=== PATIENT | male | born 1955 | race Caucasian/White ===

== ENCOUNTER 2016-11-09 11:04 | Observation (INO) | payer BC ==
--- NOTE | ~2016-11-09 | HP ---
History And Physical [id number] [facility] [place]. [address] NAME: FREDDY HALEY : 57 STATUS : ADM Yang PAT#: [id number] AGE: 61 ADM/REG DATE : 11/09/16 MR#: [id number] REPORT SERV DATE: 11/10/16 DICTATED BY: MANJIT CHANDLER DATE: 11/10/16 REPORT STATUS : Draft TRANSCRIBED BY: MOD[employer]ia DATE: 11/10/16 DATE OF ADMISSION: 11/09/2016 LABORER RAGS: Hieu Longoria M.D. PSYCHIATRIST: Dr. Lenz and also seen by Dr. Chin at [facility]. PAIN MANAGEMENT: Dr. Hidalgo. HISTORY OF PRESENT ILLNESS: This is a 61-year-old, white male with a history of mild nonobstructive coronary artery disease on cath arteriogram 10/2015 with aortic stenosis, status post AVR 2015 and paroxysmal atrial fibrillation/atrial flutter 2015 for which he is on Eliquis and denies recurrence since last year. He does also have asthma, GERD, and anxiety and depression along with seasonal allergies. He reports that he has had allergic rhinitis symptoms x3 days with a hacking cough. He reports that for three days he has had constant left-sided chest pain with no alleviating or exacerbating factors. It is mildly tender to palpation and is perhaps worse with cough. He denies any palpitations. No syncope. No edema. He denies any fevers. He did have one episode of shortness of breath and wheezing along with the cough yesterday morning. He reports that he had run out of his albuterol and therefore did not take it. He has had no shortness of breath or wheezing since that one episode. He reports he is supposed to be taking Breo Ellipta but is not taking it except for as needed and cannot remember when he last took it. He had a headache in the emergency room and at times overnight for which staff had given him Dilaudid. This has resolved. They evaluated in the ER and he had a negative head CT. He reports that he is tired which is noted on last year's complaint as well. He reports muscles are sore all over. Again, he denies any fever or severe myalgias, however. He denied any chest pain at my time of exam although went back in the room afterwards as he complained of 6/10 chest pain. EKG was done and it was benign. He remained tender to palpation. Currently, he is still sore all over. He also tells me that he has been under tremendous amount of stress with his job and with getting engaged and that he is "drinking too much beer." However, on further discussion, he had 3 beers 2 days ago and a total of 10 in one week and no liquor. PAST MEDICAL HISTORY: 1. Severe with bicuspid valve, status post bovine AVR bioprosthesis with replacement of ascending aorta, 12/04/2015, Dr. Steven. 2. PAF and atrial flutter, status post Maze/left atrial appendage ligation, 12/04/2015, currently on novel oral anticoagulant and no antiarrhythmics. Not on beta blockers for unclear reasons. Possibly secondary to fatigue. Defer to Dr. Longoria. 3. Mild nonobstructive coronary artery disease per cath arteriogram, 11/20/2015, with Dr. Mcbride with noted only mild luminal irregularities. 4. Last echocardiogram, 01/17/2016, with normal LVEF 55-60% with moderate diastolic dysfunction. 5. Three-day detox, 08/2014, at [facility] for unclear reasons (per office visit note, Dr. Covington, on chart). 6. GERD. 7. Allergic rhinitis. History And Physical [address] [address] NAME: FREDDY HALEY : 57 STATUS : ADM Yang PAT#: [id number] AGE: 61 ADM/REG DATE : 11/09/16 MR#: [id number] REPORT SERV DATE: 11/10/16 DICTATED BY: MANJIT CHANDLER DATE: 11/10/16 REPORT STATUS : Draft TRANSCRIBED BY: ADRY DATE: 11/10/16 8. Asthma. 9. History of chest pain, noted hospitalization, 11/15/2015. 10.History of mildly abnormal troponin, 0.05-0.07 range during hospitalization last year. 11.Hypertension. 12.Hypertriglyceridemia. 13.Depression. 14.Anxiety. 15.Migraine headaches for which he is on Maxalt. 16.Fatigue. 17.Vitamin D deficiency. 18.Low testosterone. 19.Obstructive sleep apnea. PAST SURGICAL HISTORY: 1. Back surgeries in 2010 and 2011 in [place], [place]. 2. AVR bioprosthesis and ascending aorta replacement, 12/04/2015. 3. Cath arteriogram, 11/20/2015, description as per above. SOCIAL HISTORY: He is . He is newly engaged. He denies any smoking. He uses snuff and has done so for 15 years. He drinks beer, 10 beers past week, 3 beers 2 days ago. No liquor. No formal exercise program. 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 FAMILY HISTORY: Father with TIAs. REVIEW OF SYSTEMS: As above per HPI, all other systems reviewed and negative. ALLERGIES: CODEINE REACTION BREAKOUT. HOME MEDICATIONS: List reviewed and is as follows: 1. Albuterol 2 puffs inhaled as needed for shortness of breath. 2. Eliquis 5 mg p.o. twice per day. 3. Wellbutrin XL 200 mg p.o. daily. 4. Vitamin B12, 1000 mcg p.o. daily. 5. Diazepam 10 mg p.o. three times per day as needed for anxiety. 6. Losartan 50 mg p.o. daily. 7. Multivitamins with minerals 1 tablet p.o. daily. 8. Protonix 40 mg p.o. twice per day. 9. Maxalt 5 mg p.o. p.r.n. migraine headaches. 10.Ambien 10 mg p.o. daily at bedtime. 11.Breo Ellipta. The patient does not know the strength or frequency. He is only taking it as needed for shortness of breath and cannot remember the last time he has taken it. He does not know what dosage he is supposed to be taking. PHYSICAL EXAMINATION: VITAL SIGNS: Oxygen saturation 96% on room air, temperature 98, pulse 65, respiratory rate History And Physical [address] [address] NAME: FREDDY HALEY : 57 STATUS : ADM Yang PAT#: [id number] AGE: 61 ADM/REG DATE : 11/09/16 MR#: [id number] REPORT SERV DATE: 11/10/16 DICTATED BY: MANJIT CHANDLER DATE: 11/10/16 REPORT STATUS : Draft TRANSCRIBED BY: MODL DATE: 11/10/16 16, blood pressure 116/67. GENERAL: Well developed, well nourished. In no apparent distress. HEENT: Head normocephalic. No xanthelasma. Sclera clear, anicteric. Moist mucous membranes without pallor. No lymphadenopathy. No deficits noted. NECK: Trachea midline. Supple. No thyromegaly, JVD, or bruits. RESPIRATORY: Unlabored respirations. Breath sounds clear bilaterally to posterior auscultation. No wheezes, rhonchi or crackles. CARDIOVASCULAR: Regular rate and rhythm. No murmur, rub, or gallop appreciated. Left- sided chest wall is mildly tender to palpation. Well-healed midline sternotomy scar noted. ABDOMEN: Soft, nontender, and nondistended. Active bowel sounds auscultated x4 quadrants. No organomegaly and no masses. No aortic bruit. EXTREMITIES: DP/PT and radial pulses 2+ bilaterally. No clubbing, cyanosis, or edema. SKIN: Warm, dry, intact. No rash. Normal turgor. MUSCULOSKELETAL: Moves all extremities in bed without difficulty. NEURO/PSYCH: Alert and oriented x3 with no acute distress. Affect appropriate to current situation. LABORATORY DATA: BMP: Sodium 137, potassium 4.8, creatinine 0.97, glucose 98, calcium 8.5, magnesium 2.3. CBC: White blood cell count 5.5, hemoglobin 15.4, hematocrit 42.8, platelets 180. Troponin 0.06, 0.06, 0.04. Urinalysis negative. CT of the head performed in the emergency room yesterday, no acute processes. Chest x-ray, no acute processes. EKGs personally interpreted times a total of 4 including last one with chest pain, normal sinus rhythm, no ischemia, possible septal Q-wave. Telemetry, normal sinus rhythm, 50s to 70s with no events. ASSESSMENT AND PLAN: 1. Atypical chest pain. The patient has had chest pain for three days. His chest is mildly tender to palpation on the left chest wall. There is no exertional component to his pain. No associated anginal-type symptoms. EKGs times a total of 4 including with chest pain, normal sinus rhythm with no ischemia. Troponins are flat at 0.06, 0.06, and 0.04. At baseline last year 0.05-0.07(for troponins). Cardiac risk factors include hypertension, hypertriglyceridemia, and snuff use. We will plan on nuclear stress test on Friday for risk stratification. He will be discharged home if it is low risk with no ischemia. I will treat the atypical chest pain with ibuprofen 1 tablet every 4-6 hours as needed for discomfort. This was discussed with rounding emissions engineer for [facility], Dr. Rasheed. 2. Mild nonobstructive coronary artery disease. This was per cath arteriogram 10/2015 with mild luminal irregularities only. I will optimize treatment for prevention of obstructive coronary artery disease by providing aspirin 81 mg p.o. daily. Continue ARB. I will check his lipids and add a statin as I note his triglycerides were quite elevated last year. He is to follow up with primary care provider and with Dr. Longoria. 3. , status post AVR. This is noted. 4. PAF history. There has been no evidence of atrial fibrillation here. We will continue History And Physical [address] [place]. [address] NAME: FREDDY HALEY : 57 STATUS : ADM Yang PAT#: [id number] AGE: 61 ADM/REG DATE : 11/09/16 MR#: [id number] REPORT SERV DATE: 11/10/16 DICTATED BY: MANJIT CHANDLER DATE: 11/10/16 REPORT STATUS : Draft TRANSCRIBED BY: ADRY DATE: 11/10/16 Eliquis and monitor on telemetry while he is here. 5. Allergic rhinitis/asthma. There is no asthma exacerbation at this time. I will provide Zyrtec while he is here in the hospital. He reports that helps him at home. He is to follow up with his primary care provider in one week. He reports he ran out of albuterol and is unclear about how he should be taking Breo Ellipta. Again, defer to PCP. Chest x-ray is clear and he is 96% on room air with no wheezing at this time. 6. Anxiety and depression. He is to follow up with his primary care provider and a psychiatrist as well if he wishes. He reports that his anxiety is more severe now. Again, follow up. 7. Headache and other pains. Head CT performed in the ER was negative. He does have a history of migraines. He does have diffuse complaints of body pains but he has no evidence of flu-like symptoms with no fever. No leukocytosis. We will provide Tylenol and ibuprofen as needed. The patient was also seen in the [facility] by rounding emissions engineer, Dr. Rasheed. KATJA/ADRY Manjit Chandler NP / [id number] CC: Aure Maddox, MSN, COAT HANGER SHAPER MACHINE OPERATOR-BC Donavan Covington D.O. Hieu Longoria M.D. Danilo Rasheed M.D.
[~2016-11-09 11:04] MED LIST: ACET500CAP PO; BREO ELLIPTA INH; C5 PO; CENTRUM PO; CO Q-10100 MG PO; CORDARONE PO; CYANO1000T PO; DEPO-TESTOS100 MG/M1 IM; DHE1 OR; ELIQUIS 5 MG TAB5 MG PO; ENDOCET1 TAB PO; LAMICTAL25 PO; LOP50 PO; LORT7 PO; METHOC500B PO; NEUR300 PO; NORCO1 TA1 PO; PROAIR HFA INH; SEROQUEL XR200 MG PO; SUDAFED OR; TESTOSTERONE IM; VALIUM10 MG PO; VITAMIN B-121000 MC1 SL; WELLXL300 PO
[2016-11-09 11:45] LABS: ASCORBIC ACID (UR NOT ORDER) NEG (NEG); BILIRUBIN, URINE NEGATIVE (NEG); ER URINALYSIS TAT 0 Hrs 08 Mins; KETONE, URINE NEGATIVE (NEG); LEUKOCYTE ESTERASE(NOT OR NEG (NEG); NITRITE (URINE) NEG (NEG); WBC (NOT ORDERED) (RFLEX) 1 (0-5)
[2016-11-09 11:55] LABS: BASOPHILS 0.5 %; BASOPHILS ABSOLUTE 0.03 10/3/uL (0.0-0.16); EOSINOPHILS 3.1 %; EOSINOPHILS ABSOLUTE 0.17 10/3/uL (0.0-0.53); ER CBC TAT 0 Hrs 03 Mins; IMMATURE GRANULOCYTES 0.4 %; IMMATURE GRANULOCYTES ABSOLUTE 0.02 10/3/uL (0.0-0.11); LYMPHOCYTES 18.5 %; LYMPHOCYTES ABSOLUTE 1.02 10/3/uL (0.67-4.30); MEAN CORPUSCULAR HEMOGLOB 33.3 pg (26.0-34.0); MEAN CORPUSCULAR VOLUME 92.6 fL (80-100); MEAN PLATELET VOLUME 9.6 fL (9.2-13.0); MONOCYTES 9.1 %; NEUTROPHILS 68.4 %; NEUTROPHILS ABSOLUTE 3.76 10/3/uL (2.02-8.40); RBC DISTRIBUTION WIDTH 12.4 % (12.0-16.0); WHITE BLOOD CELLS 5.5 10/3/uL (4.5-10.5)
[2016-11-09 11:56] LABS: HEMATOCRIT 42.8 % (40.0-51.0); HEMOGLOBIN 15.4 g/dL (13.6-17.8); MANUAL DIFF NO %; PLATELET COUNT 180 10/3/uL (150-400); RED CELL COUNT 4.62 10/6/uL (4.7-6.1)
[2016-11-09 12:03] LABS: INTERNATIONAL NORMAL RATI 1.1 UNITS (-); PARTIAL THROMBO TIME 35.3 SEC (22.5-37.2)
[2016-11-09 12:10] LABS: CALCIUM, SERUM 8.5 MG/DL (8.5-10.4); CHLORIDE, SERUM 102 MMOL/L (96-112); CO2 (CARBON DIOXIDE) 25 MMOL/L (24-34); CREATININE 0.97 MG/DL (0.70-1.30); GFR AFRICAN AMERICAN 98 ML/MIN (>=60); GFR NON AFRICAN AMERICAN 85 ML/MIN (>=60); GLUCOSE, SERUM 94 MG/DL (60-99); SODIUM, SERUM 137 MMOL/L (135-148)
[2016-11-09 12:17] LABS: BUN (BLOOD UREA NITROGEN) 9 MG/DL (6-23); POTASSIUM, SERUM 4.8 MMOL/L (3.5-5.3)
[2016-11-09 12:18] LABS: CHEST PAIN PROFILE TAT 0 Hrs 26 Mins; TROPONIN I 0.06 NG/ML (<0.05)
[2016-11-09 12:19] LABS: PROTIME (NOT ORD) 14.3 SEC (12.0-14.5)
[2016-11-09] MEDS ORDERED: ELIQUIS 5 MG TAB5 MG PO (14:48)
[2016-11-09] MEDS ORDERED: CYANO1000T PO (14:49)
[2016-11-09] MEDS ORDERED: PROAIR HFA INH (14:49)
[2016-11-09] MEDS ORDERED: WELLSR100 PO (14:49)
[2016-11-09] MEDS ORDERED: MAXALT-MLT5 MG PO (14:50)
[2016-11-09] MEDS ORDERED: PROTONIX PO (14:50)
[2016-11-09] MEDS ORDERED: CENTRUM PO (14:50)
[2016-11-09] MEDS ORDERED: COZ50 PO (14:50)
[2016-11-09] MEDS ORDERED: AMB10 PO (14:50)
[2016-11-09] MEDS ORDERED: VALIUM10 MG PO (14:51)
[2016-11-10 14:50] LABS: AMPHETAMINES (NOT ORD) NEG (NEG); BARBITURATES (NOT ORDERED NEG (NEG); BENZODIAZEPINES (NOT ORD) POS (NEG); CANNABINOIDS (THC) NEG (NEG); COCAINE (NOT ORDERED) NEG (NEG); OPIATES POS (NEG); PHENCYCLIDINE(PCP) NEG (NEG); TRICYCLICS NEG (NEG)
[2016-11-11 05:40] LABS: CHOL/HDL RATIO(NOT ORDER) 2.3 (0-5); TROPONIN I 0.05 NG/ML (<0.05)
[2016-11-11] MEDS ORDERED: LIPITOR40 (12:16)
== END 2016-11-11 12:43 | disposition home or self-care (01) ==
LOC: ER 11:04 → CDU1 14:57
PROVIDERS: Nurse Practitioner; Nurse Practitioner Family
DX: R07.89 Other chest pain (principal); I25.10 Atherosclerotic heart disease of native coronary artery without angina pectoris; I35.0 Nonrheumatic aortic (valve) stenosis; J45.909 Unspecified asthma, uncomplicated; K21.9 Gastro-esophageal reflux disease without esophagitis; F41.9 Anxiety disorder, unspecified; F32.9 Major depressive disorder, single episode, unspecified; I48.0 Paroxysmal atrial fibrillation; I48.92 Unspecified atrial flutter; I10 Essential (primary) hypertension; E78.1 Pure hyperglyceridemia; G43.909 Migraine, unspecified, not intractable, without status migrainosus; G47.33 Obstructive sleep apnea (adult) (pediatric); E55.9 Vitamin D deficiency, unspecified; Z98.890 Other specified postprocedural states; Z79.899 Other long term (current) drug therapy
CPT/HCPCS: 70450; 71010; 78452; 80048; 80061; 80305; 81001; 83735; 84484; 85025; 85610; 85730; 93005; 93017; 96374; 96375; 96376; 99285; A9270-GY; A9502; G0378; J1170; J1200; J2405; J2765

== ENCOUNTER 2016-11-15 08:50 | Day surgery (SDC) | payer BC ==
--- NOTE | ~2016-11-15 | EGD ---
EGD REPORT [facility] [address] [address] NAME: FREDDY FAY : 57 STATUS : REG [facility] PAT#: [id number] AGE: 61 ADM/REG DATE : 11/15/16 MR#: [id number] REPORT SERV DATE: 11/15/16 DICTATED BY: JONO SUAREZ DATE: 11/15/16 REPORT STATUS : Draft TRANSCRIBED BY: [facility] DATE: 11/15/16 Endoscopy Center Patient Name: Freddy Fay Date of : 1955 Attending MD: JONO SUAREZ MD Procedure Date No Time: 11/15/2016 Procedure: Upper GI endoscopy Indications: Epigastric abdominal pain; Pantoprazole 40mg daily. Patient Profile: Informed consent was obtained from the patient by me prior to the procedure. Risks, benefits, and alternatives were discussed including the risk of bleeding, perforation, infection, reaction to medicine, missed lesion, and cardiopulmonary complications. Referring MD: INEZ RODARTE Medicines: Monitored Anesthesia Care Complications: No immediate complications. Procedure: Pre-Anesthesia Assessment: - ASA Grade Assessment: II - A patient with mild systemic disease. After obtaining informed consent, the endoscope was passed under direct vision. Throughout the procedure, the patient's blood pressure, pulse, and oxygen saturations were monitored continuously. The GIF [id number] [id number] was introduced through the mouth, and advanced to the second part of duodenum. The endoscope was withdrawn with careful examination all mucosal surfaces including retroflexion stomach. The upper GI endoscopy was accomplished without difficulty. The patient tolerated the procedure well. Findings: The 2nd part of the duodenum was normal. Biopsies were taken with a cold forceps for histology. An acquired benign-appearing, intrinsic moderate stenosis was found at 2nd part of the duodenum at c-sweep, mucosa normal; endoscope passed no problems, diameter \R\10mm. Biopsies were taken with a cold forceps for histology. The first part of the duodenum was normal. Biopsies were taken with a cold forceps for histology. Patchy mildly erythematous mucosa was found in the gastric body and in the gastric antrum. Biopsies were taken with a cold forceps for histology. The cardia and gastric fundus were normal. The Z-line was irregular, no nodules or esophagitis. Biopsies were taken with a cold forceps for histology. EGD REPORT [address] [address] NAME: FREDDY FAY : [birth year] STATUS : REG [facility]#: [id number] AGE: 61 ADM/REG DATE : 11/15/16 MR#: [id number] REPORT SERV DATE: 11/15/16 DICTATED BY: JONO SUAREZ DATE: 11/15/16 REPORT STATUS : Draft TRANSCRIBED BY: [employer] DATE: 11/15/16 The examined esophagus was normal. Impression: - Normal 2nd part of the duodenum. Biopsied. - Acquired duodenal stenosis. Biopsied. - Normal first part of the duodenum. Biopsied. - Erythematous mucosa in the gastric body and antrum. Biopsied. - Normal cardia and gastric fundus. - Z-line irregular,. Biopsied. - Normal esophagus. Recommendation: - Patient has a contact number available for emergencies. The signs and symptoms of potential delayed complications were discussed with the patient. Return to normal activities tomorrow. Written discharge instructions were provided to the patient. - Regular diet. - Continue present medications. - Await pathology results. - Avoid NSAID's. Procedure Code(s): --- Professional --- 57803, Esophagogastroduodenoscopy, flexible, transoral; with biopsy, single or multiple Diagnosis Code(s): --- Professional --- K31.5, Obstruction of duodenum K31.9, Disease of stomach and duodenum, unspecified K22.8, Other specified diseases of esophagus R10.13, Epigastric pain CPT copyright 2013 [employer]. All rights reserved. The codes documented in this report are preliminary and upon eligibility consultant review may be revised to meet current compliance requirements. JONO SUAREZ MD 11/15/2016 10:22 AM This report has been signed electronically. Number of Addenda: 0 Note Initiated On: 11/15/2016 9:59 AM Scope Withdrawal Time 0 hours 0 minutes 0 seconds [id number] [id number]
--- NOTE | ~2016-11-15 | EGD ---
EGD REPORT [facility] [address] [address] NAME: FREDDY FAY : 57 STATUS : REG [facility] [place] PAT#: [id number] AGE: 61 ADM/REG DATE : 11/15/16 MR#: [id number] REPORT SERV DATE: 11/15/16 DICTATED BY: JONO SUAREZ DATE: 11/15/16 REPORT STATUS : Draft TRANSCRIBED BY: [facility] DATE: 11/15/16 Endoscopy Center Patient Name: Fredyd Fay Date of : 1955 Attending MD: JONO SUAREZ MD Procedure Date No Time: 11/15/2016 Procedure: Colonoscopy Indications: Heme positive stool; h/o colon adenoma; last exam 2013. Patient Profile: Informed consent was obtained from the patient by me prior to the procedure. Risks, benefits, and alternatives were discussed including the risk of bleeding, perforation, infection, reaction to medicine, missed lesion, and cardiopulmonary complications. Referring MD: INEZ RODARTE Medicines: Monitored Anesthesia Care Complications: No immediate complications. Procedure: Pre-Anesthesia Assessment: - ASA Grade Assessment: II - A patient with mild systemic disease. After I obtained informed consent, the scope was passed under direct vision. Throughout the procedure, the patient's blood pressure, pulse, and oxygen saturations were monitored continuously. The PCF [id number] was introduced through the anus and advanced to the cecum, identified by appendiceal orifice and ileocecal valve. The colonoscope was slowly withdrawn with careful examination all mucosal surfaces including specific attention around flexures and tip deflection behind folds; retroflexion performed in rectum. The colonoscopy was performed without difficulty. The patient tolerated the procedure well. The quality of the bowel preparation was adequate. The ileocecal valve, appendiceal orifice, terminal ileum and rectum were photographed. Findings: The terminal ileum appeared normal. The colon (entire examined portion) appeared normal. Impression: - The examined portion of the ileum was normal. - The entire examined colon is normal. Recommendation: - Patient has a contact number available for emergencies. The signs and symptoms of potential delayed complications were discussed with the patient. Return to normal activities tomorrow. Written discharge EGD REPORT [address] [address] NAME: FREDDY FAY : [birth year] STATUS : REG [facility] [place] PAT#: [id number] AGE: 61 ADM/REG DATE : 11/15/16 MR#: [id number] REPORT SERV DATE: 11/15/16 DICTATED BY: JONO SUAREZ. DATE: 11/15/16 REPORT STATUS : Draft TRANSCRIBED BY: [employer] DATE: 11/15/16 instructions were provided to the patient. - Regular diet. - Continue present medications. - Repeat colonoscopy in 5 years for surveillance. Procedure Code(s): --- Professional --- 77824, Colonoscopy, flexible, proximal to splenic flexure; diagnostic, with or without collection of specimen(s) by brushing or washing, with or without colon decompression (separate procedure) Diagnosis Code(s): --- Professional --- R19.5, Other fecal abnormalities CPT copyright 2013 [employer]. All rights reserved. The codes documented in this report are preliminary and upon children's book author review may be revised to meet current compliance requirements. JONO SUAREZ MD 11/15/2016 10:39 AM This report has been signed electronically. Number of Addenda: 0 Note Initiated On: 11/15/2016 9:57 AM Scope Withdrawal Time 0 hours 7 minutes 29 seconds [id number] [place] [id number]
[~2016-11-15 08:50] MED LIST changes: +AMB10 PO; +COZ50 PO; +LIPITOR40; +MAXALT-MLT5 MG PO; +PROTONIX PO; +WELLSR100 PO
== END 2016-11-15 23:59 | disposition home or self-care (01) ==
LOC: DMU 08:50
PROVIDERS: Internal Medicine Gastroenterology
PROC: 0DB48ZX Excision of Esophagogastric Junction, Via Natural or Artificial Opening Endoscopic, Diagnostic (ICD-10-PCS; 2016-11-15)
PROC: 0DB68ZX Excision of Stomach, Via Natural or Artificial Opening Endoscopic, Diagnostic (ICD-10-PCS; 2016-11-15)
PROC: 0DJD8ZZ Inspection of Lower Intestinal Tract, Via Natural or Artificial Opening Endoscopic (ICD-10-PCS; principal; 2016-11-15 10:00)
PROC: 0DB98ZX Excision of Duodenum, Via Natural or Artificial Opening Endoscopic, Diagnostic (ICD-10-PCS; 2016-11-15 10:00)
DX: K29.50 Unspecified chronic gastritis without bleeding (principal); K29.80 Duodenitis without bleeding; K31.5 Obstruction of duodenum; R19.5 Other fecal abnormalities; Z88.5 Allergy status to narcotic agent; Z79.891 Long term (current) use of opiate analgesic; Z79.899 Other long term (current) drug therapy; Z98.890 Other specified postprocedural states
CPT/HCPCS: 88305